=== PATIENT | male | born 1960 | race African-American/Black ===

== ENCOUNTER 2022-03-15 18:03 | Inpatient (IN) | payer OTHER ==
[2022-03-15 18:37] VITALS: BMI 23.4
[2022-03-15] MEDS ORDERED: MAGNESIUM CITRATE 300 ML BOTTLE PO PRN (18:57)
[2022-03-15] MEDS ORDERED: MAG HYDROX/AL HYDROX/SIMETH 30 ML UNIT-DOSE CUP PO PRN (18:57)
[2022-03-15] MEDS ORDERED: IBUPROFEN 400 MG TABLET (FP) PO PRN (18:57)
[2022-03-15] MEDS ORDERED: LOPERAMIDE HCL 2 MG CAPSULE PO PRN (18:57)
[2022-03-15] MEDS ORDERED: BENZOCAINE/MENTHOL (CHLORASEPTIC ) LOZENGE MM PRN (18:57)
[2022-03-15] MEDS ORDERED: DICYCLOMINE HCL 10 MG CAPSULE PO PRN (18:57)
[2022-03-15] MEDS ORDERED: ACETAMINOPHEN 325 MG TABLET (FP) PO PRN ×2 (18:57)
[2022-03-15] MEDS ORDERED: ONDANSETRON *ODT* 4 MG TABLET SL PRN (18:57)
[2022-03-15] MEDS ORDERED: BISMUTH SUBSALICYLATE 524 MG/30 ML PO PRN (18:57)
[2022-03-15] MEDS ORDERED: MAGNESIUM HYDROX 2400MG/30ML ORAL SUSPENSION 30 ML CUP PO PRN (18:57)
[2022-03-15] MEDS ORDERED: methaDONE HCL 10 MG TABLET (FOR DETOX USE ONLY) PO ONE (18:59)
[2022-03-16] MEDS ORDERED: cloNIDine HCL 0.1 MG TABLET ONE (05:29)
[2022-03-16] MEDS: cloNIDine HCL 0.1 MG TABLET PO PRN ×2 (05:30→22:28)
[2022-03-16] MEDS ORDERED: methaDONE HCL 10 MG TABLET (FOR DETOX USE ONLY) ONE (09:11)
[2022-03-16] MEDS: METHOCARBAMOL 500 MG TABLET PO PRN (09:33)
[2022-03-16] MEDS: PRENATAL VITAMINS W/ FOLIC ACID TABLET (FP) PO SCH (09:33)
[2022-03-16] MEDS: hydrOXYzine PAMOATE 25 MG CAPSULE (FP) PO PRN ×2 (09:33→22:29)
[2022-03-16 10:43] LABS: HEMATOCRIT 38.6 % (35.4-49); HEMOGLOBIN 12.4 GM/dL (11.7-16.9); MCHC 32.1 g/dl (32.0-35.9); MEAN CELL VOLUME 93.5 fl (80-96); MEAN PLT VOLUME 9.3 fl (7.5-11.1); PLATELET COUNT 245 10^3/uL (134-434); RBC 4.12 M/mm3 (4.00-5.60); RDW 14.2 % (11.9-15.9); WHITE BLOOD COUNT 6.3 K/mm3 (4.0-10.0)
[2022-03-16] MEDS: amLODIPine BESYLATE 10 MG TABLET (FP) PO SCH (10:54)
[2022-03-16] MEDS: THIAMINE HCL 100 MG TABLET (FP) PO SCH ×2 (10:54→22:27)
[2022-03-16 11:10] LABS: BLOOD UREA NITROGEN 13.3 mg/dL (7-18); CALCIUM 9.3 mg/dL (8.5-10.1)
[2022-03-16 11:11] LABS: ALBUMIN 3.6 g/dl (3.4-5.0)
[2022-03-16 11:14] LABS: CREATININE 0.9 mg/dL (0.55-1.3)
[2022-03-16 11:15] LABS: BILIRUBIN,TOTAL 1.2 mg/dL (0.2-1); TOT PROT 7.2 g/dl (6.4-8.2)
[2022-03-16] MEDS: MELATONIN 5 MG TABLETS PO PRN (22:28)
[2022-03-17] MEDS ORDERED: methaDONE HCL 10 MG TABLET (FOR DETOX USE ONLY) PO ONE (10:00)
[2022-03-17] MEDS: amLODIPine BESYLATE 10 MG TABLET (FP) PO SCH (10:05)
[2022-03-17] MEDS: METHOCARBAMOL 500 MG TABLET PO PRN (10:05)
[2022-03-17] MEDS: hydrOXYzine PAMOATE 25 MG CAPSULE (FP) PO PRN ×2 (10:05→22:42)
[2022-03-17] MEDS: PRENATAL VITAMINS W/ FOLIC ACID TABLET (FP) PO SCH (10:05)
[2022-03-17] MEDS: cloNIDine HCL 0.1 MG TABLET PO PRN ×2 (15:20→19:02)
[2022-03-17] MEDS: THIAMINE HCL 100 MG TABLET (FP) PO SCH (22:42)
[2022-03-17] MEDS: MELATONIN 5 MG TABLETS PO PRN (22:42)
[2022-03-18] MEDS ORDERED: methaDONE HCL 10 MG TABLET (FOR DETOX USE ONLY) ONE (08:57)
[2022-03-18] MEDS: PRENATAL VITAMINS W/ FOLIC ACID TABLET (FP) PO SCH (10:06)
[2022-03-18] MEDS: amLODIPine BESYLATE 10 MG TABLET (FP) PO SCH (10:07)
[2022-03-18] MEDS: METHOCARBAMOL 500 MG TABLET PO PRN (22:09)
[2022-03-18] MEDS: THIAMINE HCL 100 MG TABLET (FP) PO SCH (22:09)
[2022-03-18] MEDS: MELATONIN 5 MG TABLETS PO PRN (22:09)
[2022-03-19] MEDS ORDERED: methaDONE HCL 10 MG TABLET (FOR DETOX USE ONLY) PO ONE (10:00)
[2022-03-19] MEDS: PRENATAL VITAMINS W/ FOLIC ACID TABLET (FP) PO SCH (10:08)
[2022-03-19] MEDS: amLODIPine BESYLATE 10 MG TABLET (FP) PO SCH (10:08)
[2022-03-19] MEDS: METHOCARBAMOL 500 MG TABLET PO PRN (10:10)
[2022-03-19] MEDS: LISINOPRIL 10 MG TABLET PO SCH ×2 (14:08→22:54)
[2022-03-19] MEDS: hydrOXYzine PAMOATE 25 MG CAPSULE (FP) PO PRN (17:23)
[2022-03-19] MEDS: THIAMINE HCL 100 MG TABLET (FP) PO SCH (22:54)
[2022-03-20] MEDS: amLODIPine BESYLATE 10 MG TABLET (FP) PO SCH (10:09)
[2022-03-20] MEDS: PRENATAL VITAMINS W/ FOLIC ACID TABLET (FP) PO SCH (10:09)
[2022-03-20] MEDS: LISINOPRIL 10 MG TABLET PO SCH (10:09)
[2022-03-20] MEDS: hydrOXYzine PAMOATE 25 MG CAPSULE (FP) PO PRN (10:09)
[2022-03-20] MEDS: METHOCARBAMOL 500 MG TABLET PO PRN (10:09)
[2022-03-20 13:03] VITALS: BP 155/82; PULSE 69; TEMP 96.9
== END 2022-03-20 13:50 | disposition other institution (70) | DRG 773 ==
LOC: YASAS 18:03 → Y6N 03-16 08:37
PROVIDERS: ADMIT Allergy & Immunology; ATTEND Surgery
PROC: HZ2ZZZZ Detoxification Services for Substance Abuse Treatment (ICD-10-PCS; principal; 2022-03-16)
DX: F11.23 Opioid dependence with withdrawal (principal); F14.10 Cocaine abuse, uncomplicated; F12.10 Cannabis abuse, uncomplicated; F17.210 Nicotine dependence, cigarettes, uncomplicated; I10 Essential (primary) hypertension; M17.12 Unilateral primary osteoarthritis, left knee
CPT/HCPCS: 36415; 71046-TC-FY; 80053; 85027; 86780; 93005; 93010; C9803-CS; J0735; U0003; U0005

== ENCOUNTER 2022-03-20 13:34 | Inpatient (IN) | payer OTHER ==
[2022-03-20] MEDS ORDERED: LOPERAMIDE HCL 2 MG CAPSULE PO PRN (15:33)
[2022-03-20] MEDS ORDERED: MAGNESIUM CITRATE 300 ML BOTTLE PO PRN (15:33)
[2022-03-20] MEDS ORDERED: guaiFENesin 200 MG/10 ML 10 ML UNIT-DOSE CUPS PO PRN (15:33)
[2022-03-20] MEDS ORDERED: MAG HYDROX/AL HYDROX/SIMETH 30 ML UNIT-DOSE CUP PO PRN (15:33)
[2022-03-20] MEDS ORDERED: ACETAMINOPHEN 325 MG TABLET (FP) PO PRN (15:33)
[2022-03-20] MEDS ORDERED: MAGNESIUM HYDROX 2400MG/30ML ORAL SUSPENSION 30 ML CUP PO PRN (15:33)
[2022-03-20] MEDS ORDERED: BENZOCAINE/MENTHOL (CHLORASEPTIC ) LOZENGE MM PRN (15:33)
[2022-03-20] MEDS ORDERED: P-EPHED 60MG/TRIPROLIDI 2.5MG TABLET PO PRN (15:33)
[2022-03-20] MEDS ORDERED: NICOTINE 10 MG CARTRIDGE (INHALER) IH PRN (15:33)
[2022-03-20] MEDS: IBUPROFEN 400 MG TABLET (FP) PO PRN (20:13)
[2022-03-20] MEDS: LISINOPRIL 10 MG TABLET PO SCH (21:15)
[2022-03-20] MEDS: MELATONIN 5 MG TABLETS PO SCH (21:15)
[2022-03-20] MEDS: THIAMINE HCL 100 MG TABLET (FP) PO SCH (21:15)
[2022-03-21] MEDS: PRENATAL VITAMINS W/ FOLIC ACID TABLET (FP) PO SCH (10:22)
[2022-03-21] MEDS: NICOTINE 7 MG/24 HOURS TOPICAL PATCH TD SCH (10:23)
[2022-03-21] MEDS: LISINOPRIL 10 MG TABLET PO SCH ×2 (10:23→21:17)
[2022-03-21] MEDS: amLODIPine BESYLATE 10 MG TABLET (FP) PO SCH (10:23)
[2022-03-21] MEDS: hydrOXYzine PAMOATE 25 MG CAPSULE (FP) PO PRN (21:17)
[2022-03-21] MEDS: IBUPROFEN 400 MG TABLET (FP) PO PRN (21:17)
[2022-03-21] MEDS: MELATONIN 5 MG TABLETS PO SCH (21:17)
[2022-03-21] MEDS: THIAMINE HCL 100 MG TABLET (FP) PO SCH (21:17)
[2022-03-22] MEDS: hydrOXYzine PAMOATE 25 MG CAPSULE (FP) PO PRN (07:06)
[2022-03-22] MEDS: LISINOPRIL 10 MG TABLET PO SCH ×2 (10:01→21:22)
[2022-03-22] MEDS: PRENATAL VITAMINS W/ FOLIC ACID TABLET (FP) PO SCH (10:01)
[2022-03-22] MEDS: NICOTINE 7 MG/24 HOURS TOPICAL PATCH TD SCH (10:01)
[2022-03-22] MEDS: amLODIPine BESYLATE 10 MG TABLET (FP) PO SCH (10:01)
[2022-03-22] MEDS: IBUPROFEN 400 MG TABLET (FP) PO PRN ×2 (10:03→21:25)
[2022-03-22] MEDS: MELATONIN 5 MG TABLETS PO SCH (21:21)
[2022-03-22] MEDS: THIAMINE HCL 100 MG TABLET (FP) PO SCH (21:22)
[2022-03-22] MEDS ORDERED: QUEtiapine FUMARATE 100 MG TABLET (FP) PO SCH (22:00)
[2022-03-23 07:45] VITALS: TEMP 97.7
[2022-03-23] MEDS: NICOTINE 7 MG/24 HOURS TOPICAL PATCH TD SCH (09:45)
[2022-03-23] MEDS: amLODIPine BESYLATE 10 MG TABLET (FP) PO SCH (09:45)
[2022-03-23] MEDS: PRENATAL VITAMINS W/ FOLIC ACID TABLET (FP) PO SCH (09:45)
[2022-03-23] MEDS: LISINOPRIL 10 MG TABLET PO SCH (09:45)
[2022-03-23 09:53] VITALS: BP 148/83; PULSE 76
== END 2022-03-23 11:30 | disposition home or self-care (01) | DRG 772 ==
LOC: YASAS 13:34 → Y5N 13:35
PROVIDERS: ADMIT Allergy & Immunology; ATTEND Psychiatry & Neurology Pain Medicine
PROC: HZ42ZZZ Group Counseling for Substance Abuse Treatment, Cognitive-Behavioral (ICD-10-PCS; principal; 2022-03-20)
DX: F11.20 Opioid dependence, uncomplicated (principal); F14.20 Cocaine dependence, uncomplicated; F17.210 Nicotine dependence, cigarettes, uncomplicated; F19.24 Other psychoactive substance dependence with psychoactive substance-induced mood disorder; F41.9 Anxiety disorder, unspecified; I10 Essential (primary) hypertension; Z59.01 Sheltered homelessness